=== PATIENT | female | born 1965 | race Caucasian/White ===

== ENCOUNTER → 2018-02-21 | Day surgery (SDC) | payer SELFPAY ==
[~2018-02-21] VITALS: Ht 154.9 cm; Wt 72.6 kg
[~2018-02-21] MED LIST: LITHIUM CARBON150 M1 PO; METFORMIN HCL1000 M2 PO; ORAL CONTRACEPTIVE; SIMVASTATIN10 M1 PO; XANAX2 M1 PO; ZOLOFT100 M1 PO
--- NOTE | 2018-02-21 16:06 | Operative Report ---
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 Once agreed to and following markings showing the areas that would be treated those that were not she signed informed consent. She was taken to the operating placed supine on the table. At the application of Venodyne boots general anesthesia was established intravenous antibiotics were given. The breast arms and abdominal wall prepped and draped in usual sterile fashion. Breast reduction was carried out with a circumflex vertical technique after marking the patient preoperatively in the standing position with the use of a tape measure. Inferior medial inferior lateral and inferior to the nipple areola was resected. Patient was put into the sitting position after temporary closure found to be symmetrical. Multiple layer closure was then carried out of the wounds. Approximately 500 cc of breast tissue was removed from each side. Attention was then turned to the arms where a stab incision was made posterior distal arm and tumescent fluid was instilled with approximately 800 cc of aspirate per arm. Wound was closed with sutures and glue. Attention was then turned to the abdominal wall where the umbilicus was freed the flap was developed along the fascia and resected. No hernias identified. The patient was put in the semi- Sampson's position and multilayer closure was carried out over drain. Ends dictation.
== END ==
LOC: STS 02:41
DX: Z41.1 Encounter for cosmetic surgery (principal); N62 Hypertrophy of breast; E65 Localized adiposity; E11.9 Type 2 diabetes mellitus without complications; Z79.84 Long term (current) use of oral hypoglycemic drugs; F17.200 Nicotine dependence, unspecified, uncomplicated
CPT/HCPCS: 81025; 87086; J0131; J0171; J0690; J2001; J2250; Q9968